=== PATIENT | male | born 1950 | race Caucasian/White ===

== ENCOUNTER 2017-07-28 17:08 | Inpatient (IN) | payer MEDICARE, OTHER ==
[~2017-07-28 17:08] MED LIST: Iopamidol 300 61% 100 ML VIAL FS ONE
[2017-07-28] MEDS ORDERED: Ondansetron HCl/PF 4 MG/2 ML Vial ONE (17:48)
[2017-07-28 18:11] LABS: ALT (SGPT) 46 U/L (8-55); Alkaline Phosphatase 65 U/L (40-150); Anion Gap 28 mmol/L (10-20); BUN (Urea Nitrogen) 17 mg/dL (8.4-25.7); Bilirubin, Total 0.4 mg/dL (0.2-1.2); Calc. Creatinine Clearance 0 mL/min (70-130); Calcium 9.3 mg/dL (7.8-10.44); Carbon Dioxide 12 mmol/L (23-31); Chloride 96 mmol/L (98-107); Estimated GFR-MDRD 63; Globulin 4.6 g/dL (2.4-3.5); Glucose 299 mg/dL (80-115); Potassium 4.2 mmol/L (3.5-5.1); Protein, Total 8.6 g/dL (5.8-8.1); Sodium 132 mmol/L (136-145)
[2017-07-28 18:12] LABS: CKMB 2.4 ng/mL (0-6.6); Troponin I 0.014 ng/mL (< 0.028)
[2017-07-28 18:18] LABS: AST (SGOT) 26 U/L (5-34)
[2017-07-28 18:33] LABS: Band 9 % (5-11); Eosinophils 2 % (0-10); Hemoglobin 13.7 g/dL (14.0-18.0); Lymphocytes 12 % (21-51); MDiff Complete? YES; Mean Corpuscular HGB CONC 38.7 g/dL (32.0-36.0); Mean Corpuscular Hemoglobin 32.9 pg (27.0-31.0); Mean Corpuscular Volume 85.1 fl (80.0-94.0); Mean Platelet Volume 7.7 fL (7.4-10.4); Monocytes 4 % (0-10); Neutrophil 72 % (42-75); PLT Morphology Comment Appears Adequate; Platelet Count 156 thou/uL (130-400); RBC Distribution Width 10.9 % (11.5-14.5); Red Blood Cell (RBC) Count 4.17 mill/uL (4.70-6.10)
--- NOTE | 2017-07-28 19:07 | CT ---
CTA CHEST CTA ABDOMEN AND PELVIS CTA AORTOGRAM WITH 3D VOLUME RENDERING 07/28/17 CLINICAL HISTORY: Abdominal pain, gradual onset, progressive. FINDINGS: There is no evidence of acute dissection involving the thoracoabdominal aorta. No aneurysmal dilatati on or periaortic hematoma. The pulmonary arteries are of normal caliber. Scattered granulomatous calcifications are present. The re is inflammation of the central abdomen statistically reflective of pancreatitis. Fluid density michel s approximate the gastric wall as well as loops of regional bowel. A possibility of superimposed rahul roenteritis not excluded. Correlate clinically. No free air. No portal venous gas. There is low atten uation of the liver which may be on the basis of hepatic steatosis and/or phase of enhancement. Scatt ered vascular calcification present. Major branch vessels of the abdominal aorta are patent. There is osseous degenerative change. IMPRESSION: 1. No acute aortic pathology evident. 2. Findings which most likely relate to pancreatitis. Possibility of superimposed gastroenteriti s not excluded. Recommend correlation with pancreatic enzyme values. POS: CHARIS
[2017-07-28 19:27] LABS: Lipase 11981 U/L (8-78)
[2017-07-28 20:17] LABS: Actual Bicarbonate (HCO3v) 26 mEq/L (22-26); Base Excess 0.2 mEq/L (0 (+/- 2.5)); Chloride (ABG LAB) 97 mmol/L (98-106); Potassium - ABG Lab 5.3 mmol/L (3.70-5.30); Sodium 135.6 mmol/L (133-146); pH (venous) 7.36 (7.35-7.45)
[2017-07-28] MEDS ORDERED: Dextrose 50% Abboject 50 ML SYRINGE SLOW IVP PRN (20:41)
[2017-07-28] MEDS ORDERED: Dextrose 5% in Water 1,000 ML IV PRN (20:41)
[2017-07-28] MEDS ORDERED: Ondansetron HCl/PF 4 MG/2 ML Vial IVP PRN ×2 (20:41→20:45)
[2017-07-28] MEDS ORDERED: Ondansetron ODT 4 MG TAB SL PRN (20:45)
[2017-07-28] MEDS ORDERED: Sodium Chloride 0.9% 1,000 ML IV SCH (20:45)
--- NOTE | 2017-07-28 21:10 | HP ---
CHIEF COMPLAINT: Abdominal pain. HISTORY OF PRESENT ILLNESS: The patient is a 66-year-old male who presents with left upper quadrant abdominal pain starting around 3:00 today. The patient states the pain was sharp and it occurred aft er he had eaten lunch. Patient states that he has never had any prior occurrence. Otherwise, he als o had nausea and vomiting along with this on the onset. The patient denied any fevers or chills, ankita rrhea, or constipation. He does have a history of hypertriglyceridemia which he is on medication for . PAST MEDICAL HISTORY: Significant for type 2 diabetes and hypertension as well as hypertriglyceridem ia. PAST SURGICAL HISTORY: The patient has had prior appendectomy. SOCIAL HISTORY: Patient drinks socially. No tobacco use. FAMILY HISTORY: Reviewed and noncontributory. REVIEW OF SYSTEMS: Please see HPI. Rest of the 14-point review of system is negative. MEDICATIONS: Currently, patient is on 625 mg of Welchol, 10 mg of lisinopril once a day, Prozac 10 m g once a day and metformin 1000 mg once a day. LABORATORY AND X-RAY FINDINGS: CBC, white count is 12, H&H 13 and 40 with platelet of 156. Sodium i s 132, potassium 4.2, chloride 96, bicarbonate 12, BUN 17, creatinine 1.1 with glucose of 299. AST i s 26, ALT 46. Lipase was 11,981. PHYSICAL EXAMINATION: VITAL SIGNS: Temperature 98, pulse 79, respirations 16. The patient is satting 94% on room air, blo od pressure 156/66. GENERAL: Patient is awake, alert, and oriented x3, no acute distress. HEENT: Pupils are equal, round, reactive to light and accommodation. Extraocular muscles are intact . TMs are clear. No erythema in throat. NECK: No JVD, no lymphadenopathy. CARDIOVASCULAR: Regular rate and rhythm. LUNGS: Clear to auscultation bilaterally. ABDOMEN: Positive bowel sounds, soft, tender to palpation in the left upper quadrant. No rebound, r igidity, no peritoneal signs. EXTREMITIES: No clubbing, cyanosis or edema. NEUROLOGIC: Cranial nerves II-XII are grossly intact. PSYCHIATRIC: The patient answers questions appropriately and is cooperative. ASSESSMENT AND PLAN: 1. Acute pancreatitis most likely secondary to hypertriglyceridemia. Continue with pain medication. Continue with IV fluids. Maintain the patient on n.p.o. 2. Type 2 diabetes. Continue insulin sliding scale only. Hold metformin. 3. Hypertension. Hold lisinopril. Continue to monitor and p.r.n. medications as needed. 4. Hypertriglyceridemia. Patient is on Welchol. We will address once the patient is able to have p .o. intake. CODE STATUS: Patient is a FULL CODE.
[2017-07-28 21:12] VITALS: BMI 28.7
[2017-07-28] MEDS: Famotidine/PF 20 mg/2ml Vial SLOW IVP SCH (21:30)
[2017-07-28] MEDS: Sodium Chloride 0.9% 1,000 ML IV SCH (22:41)
[2017-07-29] MEDS: HumaLOG 300 UNITS/3 ML VIAL SC PRN ×3 (00:07→20:08)
[2017-07-29 03:45] LABS: Bilirubin Negative (Negative); Blood, Urine Negative (Negative); Clarity CLEAR (Clear); Glucose, Urine (Dipstick) >=1000 mg/dL (Negative); Leukocyte Negative (Negative); Nitrite Negative (Negative); Protein, Urine (Dipstick) Negative (Neg-Trace); Specific Gravity, Urine 1.037 (1.002-1.036); Urobilinogen 0.2 mg/dL (0.2-1.0)
[2017-07-29 03:51] LABS: Bacteria/HPF None Seen HPF (None Seen); Hyaline Casts/LPF 0-3 HYALINE CAST LPF (0-3 Hyaline); RBC/HPF 0-3 HPF (0-3); Squamous Epithelial None Seen HPF (0-3); WBC/HPF None Seen HPF (0-3)
[2017-07-29 05:11] LABS: #Basophils 0.1 thou/uL (0.0-0.2); #Eosinphils 0.1 thou/uL (0.0-0.7); #Monocytes 0.7 thou/uL (0.11-0.59); #Neutrophils 8.2 thou/uL (1.40-6.50); %Basophils 0.6 % (0.0-1.0); %Eosinophils 0.7 % (0.0-10.0); %Lymphocytes 10.1 % (21.0-51.0); %Monocytes 6.5 % (0.0-10.0); %Neutrophils 82.2 % (42.0-75.0); Hemoglobin 14.4 g/dL (14.0-18.0); Mean Corpuscular HGB CONC 36.9 g/dL (32.0-36.0); Mean Corpuscular Hemoglobin 32.6 pg (27.0-31.0); Mean Corpuscular Volume 88.5 fl (80.0-94.0); Mean Platelet Volume 7.7 fL (7.4-10.4); Platelet Count 168 thou/uL (130-400); RBC Distribution Width 11.9 % (11.5-14.5); Red Blood Cell (RBC) Count 4.41 mill/uL (4.70-6.10)
[2017-07-29 05:27] LABS: ALT (SGPT) 35 U/L (8-55); AST (SGOT) 14 U/L (5-34); Albumin 3.5 g/dL (3.4-4.8); Alkaline Phosphatase 59 U/L (40-150); Anion Gap 22 mmol/L (10-20); BUN (Urea Nitrogen) 12 mg/dL (8.4-25.7); Bilirubin, Total 0.7 mg/dL (0.2-1.2); Calc. Creatinine Clearance 99 mL/min (70-130); Calcium 8.3 mg/dL (7.8-10.44); Carbon Dioxide 16 mmol/L (23-31); Chloride 98 mmol/L (98-107); Estimated GFR-MDRD 79; Globulin 3.1 g/dL (2.4-3.5); Glucose 288 mg/dL (80-115); Potassium 3.9 mmol/L (3.5-5.1); Protein, Total 6.6 g/dL (5.8-8.1); Sodium 132 mmol/L (136-145)
[2017-07-29] MEDS: Sodium Chloride 0.9% 1,000 ML IV SCH ×4 (05:30→20:11)
[2017-07-29 06:39] LABS: Lipase 1568 U/L (8-78)
[2017-07-29 07:34] LABS: Cardiac Risk 25.7 (Less than 4.5); Cholesterol 411 mg/dl (< 200 Desired); HDL Cholesterol 16 mg/dL (>60 Neg Risk)
[2017-07-29 07:50] LABS: Triglycerides 2275 mg/dL (Less than 150)
[2017-07-29] MEDS: Famotidine/PF 20 mg/2ml Vial SLOW IVP SCH ×2 (08:24→20:12)
[2017-07-29] MEDS: Enoxaparin Sodium 30 MG/0.3 ML SYRINGE SC SCH (08:26)
[2017-07-29] MEDS ORDERED: FLU VACC TS2017-18 (>65YR) 0.5 ML SYRINGE IM ONE (09:00)
--- NOTE | 2017-07-29 10:53 | PDOC.PN ---
- Subjective Encounter Start Date: 07/29/17 Encounter Start Time: 10:52 Mr. Carrizales was seen today in follow-up of pancreatitis. He says the abdominal pain is much improved since last night. He only has a few waves of pain across his abdomen at a rate of 5/10 from time to time. - Objective Resuscitation Status: Resuscitation Status FULL:Full Resuscitation MAR Reviewed: Yes Vital Signs & Weight: Vital Signs (12 hours) Temp Pulse Resp BP BP Pulse Ox 07/29/17 08:00 99 F 79 24 H 134/74 93 L 07/29/17 03:22 98.8 F 75 12 151/71 H 96 07/28/17 23:40 98.1 F 76 16 136/63 95 Weight Weight 200 lb 4.8 oz I&O: 07/28/17 07/29/17 07/30/17 06:59 06:59 06:59 Intake Total 1500 Balance 1500 Result Diagrams: 07/29/17 04:38 07/29/17 04:38 Additional Labs: Accuchecks 07/29/17 07/28/17 05:32 23:47 POC Glucose 266 H 244 H Phys Exam - Physical Examination HEENT: PERRLA Respiratory: no wheezing, no rales, no rhonchi, clear to auscultation bilateral Cardiovascular: RRR, no significant murmur, no rub Gastrointestinal: soft, positive bowel sounds + diffuse mild tenderness, no rebound orguarding Musculoskeletal: no edema Dx/Plan (1) Acute pancreatitis Code(s): K85.90 - ACUTE PANCREATITIS WITHOUT NECROSIS OR INFECTION, UNSP Status: Acute (2) Hypertriglyceridemia Code(s): E78.1 - PURE HYPERGLYCERIDEMIA Status: Acute (3) Diabetes mellitus type 2 in obese Code(s): E11.69 - TYPE 2 DIABETES MELLITUS WITH OTHER SPECIFIED COMPLICATION; E66.9 - OBESITY, UNSPECIFIED Status: Acute (4) Hypertension Code(s): I10 - ESSENTIAL (PRIMARY) HYPERTENSION Status: Acute - Plan * Acute pancreatitis due to hypertriglyceridemia- He admits that he does not take his medications regularly. The dangers of this were discussed * Will advance his diet to clear liquids * Continue IV fluids and IV analgesics * HTN - blood pressure is stable * DM- Continue SSI.
[2017-07-29] MEDS ORDERED: hydrALAZINE 20 MG/ML VIAL SLOW IVP PRN (10:57)
[2017-07-29] MEDS: Fenofibrate Nanocrystallized 145 MG TAB PO SCH (20:12)
[2017-07-29] MEDS: Acetaminophen 325 MG TAB PO PRN (20:12)
[2017-07-30] MEDS: Acetaminophen 325 MG TAB PO PRN ×3 (02:18→20:45)
[2017-07-30] MEDS: HumaLOG 300 UNITS/3 ML VIAL SC PRN ×3 (02:18→23:50)
[2017-07-30 05:35] LABS: Anion Gap 15 mmol/L (10-20); BUN (Urea Nitrogen) 7 mg/dL (8.4-25.7); Calc. Creatinine Clearance 105 mL/min (70-130); Carbon Dioxide 22 mmol/L (23-31); Chloride 100 mmol/L (98-107); Estimated GFR-MDRD 85; Glucose 200 mg/dL (80-115); Lipase 140 U/L (8-78); Potassium 3.6 mmol/L (3.5-5.1); Sodium 133 mmol/L (136-145)
[2017-07-30] MEDS: Sodium Chloride 0.9% 1,000 ML IV SCH ×3 (06:35→20:45)
[2017-07-30] MEDS: FLUoxetine HCl 20 MG CAP PO SCH (08:59)
[2017-07-30] MEDS: Gabapentin 300 MG CAP PO SCH (08:59)
[2017-07-30] MEDS: Enoxaparin Sodium 30 MG/0.3 ML SYRINGE SC SCH (09:04)
[2017-07-30] MEDS: Famotidine/PF 20 mg/2ml Vial SLOW IVP SCH ×2 (09:04→20:45)
--- NOTE | 2017-07-30 10:28 | PDOC.PN ---
- Subjective Encounter Start Date: 07/30/17 Encounter Start Time: 10:26 - Objective Resuscitation Status: Resuscitation Status FULL:Full Resuscitation MAR Reviewed: Yes Vital Signs & Weight: Vital Signs (12 hours) Temp Pulse Resp BP BP Pulse Ox 07/30/17 08:00 99.2 F 98 14 175/95 H 90 L 07/30/17 06:04 100.0 F H 86 18 144/79 H 93 L Weight Weight 200 lb 4.8 oz I&O: 07/29/17 07/30/17 07/31/17 06:59 06:59 06:59 Intake Total 1500 Balance 1500 Result Diagrams: 07/29/17 04:38 07/30/17 04:04 Additional Labs: Accuchecks 07/30/17 07/30/17 07/29/17 06:49 02:01 20:02 POC Glucose 217 H 218 H 265 H 07/29/17 15:45 POC Glucose 233 H Phys Exam - Physical Examination HEENT: PERRLA Respiratory: no wheezing, no rales, no rhonchi, clear to auscultation bilateral Cardiovascular: RRR, no significant murmur Gastrointestinal: soft, positive bowel sounds + mild upper left upper quandrant tenderness Musculoskeletal: no edema Dx/Plan (1) Acute pancreatitis Code(s): K85.90 - ACUTE PANCREATITIS WITHOUT NECROSIS OR INFECTION, UNSP Status: Acute (2) Hypertriglyceridemia Code(s): E78.1 - PURE HYPERGLYCERIDEMIA Status: Acute (3) Diabetes mellitus type 2 in obese Code(s): E11.69 - TYPE 2 DIABETES MELLITUS WITH OTHER SPECIFIED COMPLICATION; E66.9 - OBESITY, UNSPECIFIED Status: Acute (4) Hypertension Code(s): I10 - ESSENTIAL (PRIMARY) HYPERTENSION Status: Acute - Plan * Acute Pancreatitis- improving slowly- will check a gall bladder ultrasound to rule out stone * Hypertriglyceridemia- continue Welcol, and Fenofibrate * HTN- will add scheduled Hydralazine * DM- triglyceride level is interfering with bedside glucose- will check serum glucose twice a day * Continue clear liquids today.
--- NOTE | 2017-07-30 15:02 | ULT ---
ABDOMINAL ULTRASOUND: Date: 07/30/17 HISTORY: Abdominal pain. FINDINGS: Real-time imaging of the upper abdomen shows a normal appearing gallbladder. The common duct is 3.0 m m. Technologist reports a negative ultrasound Kelly's sign. The liver shows increased echogenicity compatible with fatty change. The spleen measures 11.5 cm in l ength. Pancreas is obscured. Right and left kidneys are normal in size and not obstructed. Abdominal aorta and IVC regions are also partially obscured by bowel gas. IMPRESSION: Fatty changes of the liver. POS: C
[2017-07-30] MEDS: hydrALAZINE 10 MG TAB PO SCH ×2 (15:04→20:44)
[2017-07-30] MEDS: WELCHOL 625 MG PO SCH ×2 (15:04→20:44)
[2017-07-30] MEDS: Fenofibrate Nanocrystallized 145 MG TAB PO SCH (20:44)
[2017-07-30 21:17] LABS: Glucose 190 mg/dL (80-115)
[2017-07-31] MEDS: Sodium Chloride 0.9% 1,000 ML IV SCH ×2 (05:33→09:56)
[2017-07-31 09:17] LABS: Glucose 247 mg/dL (80-115)
[2017-07-31] MEDS: Enoxaparin Sodium 30 MG/0.3 ML SYRINGE SC SCH (09:39)
[2017-07-31] MEDS: Famotidine/PF 20 mg/2ml Vial SLOW IVP SCH ×2 (09:40→20:23)
[2017-07-31] MEDS: FLUoxetine HCl 20 MG CAP PO SCH (09:40)
[2017-07-31] MEDS: Gabapentin 300 MG CAP PO SCH (09:40)
[2017-07-31] MEDS: hydrALAZINE 10 MG TAB PO SCH ×3 (09:41→20:24)
[2017-07-31] MEDS: HumaLOG 300 UNITS/3 ML VIAL SC PRN ×2 (09:46→22:07)
[2017-07-31] MEDS: WELCHOL 625 MG PO SCH ×2 (11:20→22:05)
[2017-07-31] MEDS ORDERED: cloNIDine 0.1 MG TAB PO PRN (11:45)
--- NOTE | 2017-07-31 11:45 | PDOC.PN ---
- Subjective Encounter Start Date: 07/31/17 Encounter Start Time: 11:42 Mr. Carrizales does not have any complaints this afternoon. He says his abdomen feels a bit full, but otherwise ok. - Objective Resuscitation Status: Resuscitation Status FULL:Full Resuscitation MAR Reviewed: Yes Vital Signs & Weight: Vital Signs (12 hours) Temp Pulse Resp BP BP Pulse Ox 07/31/17 09:41 87 170/83 H 07/31/17 07:15 98.7 F 87 18 170/83 H 95 07/31/17 05:06 99.8 F H 91 18 173/90 H 94 L 07/31/17 00:17 98.7 F 86 18 161/77 H 94 L Weight Weight 200 lb 4.8 oz I&O: 07/30/17 07/31/17 08/01/17 06:59 06:59 06:59 Intake Total 5600 Balance 5600 Result Diagrams: 07/29/17 04:38 07/31/17 08:50 Additional Labs: Accuchecks 07/31/17 10:55 POC Glucose 182 H Phys Exam - Physical Examination HEENT: PERRLA Respiratory: no wheezing, no rales, no rhonchi, clear to auscultation bilateral Cardiovascular: RRR, no significant murmur, no rub Gastrointestinal: soft, non-tender, positive bowel sounds Musculoskeletal: no edema Dx/Plan (1) Acute pancreatitis Code(s): K85.90 - ACUTE PANCREATITIS WITHOUT NECROSIS OR INFECTION, UNSP Status: Acute (2) Hypertriglyceridemia Code(s): E78.1 - PURE HYPERGLYCERIDEMIA Status: Acute (3) Diabetes mellitus type 2 in obese Code(s): E11.69 - TYPE 2 DIABETES MELLITUS WITH OTHER SPECIFIED COMPLICATION; E66.9 - OBESITY, UNSPECIFIED Status: Acute (4) Hypertension Code(s): I10 - ESSENTIAL (PRIMARY) HYPERTENSION Status: Acute - Plan * Acute Pancreatitis- from hypertriglyderidemia- continue Fenofibrate and Welcol * Will advance his diet to full liquids * HTN- blood pressure is slightly elevated still will add Clonidine * Hopefully home if tolerated a full liquid diet.
[2017-07-31] MEDS ORDERED: cloNIDine 0.1 MG TAB PO SCH (12:00)
[2017-07-31] MEDS: Fenofibrate Nanocrystallized 145 MG TAB PO SCH (20:23)
[2017-07-31] MEDS: Acetaminophen 325 MG TAB PO PRN (20:24)
[2017-07-31 21:31] LABS: Glucose 244 mg/dL (80-115)
[2017-08-01] MEDS: HumaLOG 300 UNITS/3 ML VIAL SC PRN (04:31)
[2017-08-01] MEDS ORDERED: Loperamide HCl 2 MG CAP PO PRN (08:35)
[2017-08-01] MEDS ORDERED: Eucerin (Mineral Oil/Petrolatum,White) 30 gm Jar TOP PRN (08:35)
[2017-08-01] MEDS ORDERED: Artificial Tears 18 DROP/0.9 ML EA EYE PRN (08:35)
[2017-08-01] MEDS ORDERED: Mag-Al 1200 mg/1200 mg/30 ML UDCUP PO PRN (08:35)
[2017-08-01] MEDS ORDERED: Temazepam 15 MG CAP PO PRN (08:35)
[2017-08-01] MEDS: Gabapentin 300 MG CAP PO SCH (08:35)
[2017-08-01] MEDS ORDERED: Loratadine 10 MG TAB PO PRN (08:35)
[2017-08-01] MEDS: FLUoxetine HCl 20 MG CAP PO SCH (08:35)
[2017-08-01] MEDS ORDERED: Sodium Chloride 0.65% Nasal 44 ML BOT EA NARE PRN (08:35)
[2017-08-01] MEDS: Enoxaparin Sodium 30 MG/0.3 ML SYRINGE SC SCH (08:35)
[2017-08-01] MEDS ORDERED: HYDROcodone/Acetaminophen 5/325 mg Tablet PO PRN (08:35)
[2017-08-01] MEDS ORDERED: Senokot 8.6 MG TAB PO PRN (08:35)
[2017-08-01] MEDS ORDERED: Ondansetron ODT 4 MG TAB PO PRN (08:35)
[2017-08-01] MEDS ORDERED: Milk Of Magnesia 30 ML UDCUP PO PRN (08:35)
[2017-08-01] MEDS ORDERED: HumaLOG 300 UNITS/3 ML VIAL SC PRN ×2 (08:35)
[2017-08-01] MEDS ORDERED: Diabetic Tussin 200 MG/10 ML UDCUP PO PRN (08:35)
[2017-08-01] MEDS ORDERED: Chloraseptic Spray 180 ml Bottle PO PRN (08:35)
[2017-08-01] MEDS: hydrALAZINE 10 MG TAB PO SCH (08:36)
[2017-08-01] MEDS ORDERED: metFORMIN 500 MG TAB PO SCH (09:00)
[2017-08-01] MEDS ORDERED: Lisinopril/Hydrochlorothiazide 20/25 mg Tablet PO SCH (09:00)
[2017-08-01] MEDS ORDERED: Famotidine 20 MG TAB PO SCH (09:00)
[2017-08-01 10:57] LABS: #Eosinphils 0.3 thou/uL (0.0-0.7); #Lymphocytes 1.2 thou/uL (1.20-3.40); #Monocytes 0.7 thou/uL (0.11-0.59); #Neutrophils 8.2 thou/uL (1.40-6.50); %Basophils 0.4 % (0.0-1.0); %Eosinophils 2.7 % (0.0-10.0); %Lymphocytes 11.2 % (21.0-51.0); %Monocytes 6.9 % (0.0-10.0); %Neutrophils 78.8 % (42.0-75.0); Hemoglobin 12.7 g/dL (14.0-18.0); Mean Corpuscular HGB CONC 34.2 g/dL (32.0-36.0); Mean Corpuscular Hemoglobin 31.8 pg (27.0-31.0); Mean Corpuscular Volume 92.9 fl (80.0-94.0); Mean Platelet Volume 7.1 fL (7.4-10.4); Platelet Count 185 thou/uL (130-400); RBC Distribution Width 11.8 % (11.5-14.5); Red Blood Cell (RBC) Count 3.99 mill/uL (4.70-6.10); White Blood Cell (WBC) Count 10.4 thou/uL (4.8-10.8)
--- NOTE | 2017-08-01 11:13 | PDOC.PN ---
- Subjective Encounter Start Date: 08/01/17 Encounter Start Time: 08:30 -: old records requested/rev Patient seen and examined. No new complaints. No overnight events - Objective Resuscitation Status: Resuscitation Status FULL:Full Resuscitation MAR Reviewed: Yes Vital Signs & Weight: Vital Signs (12 hours) Temp Pulse Resp BP BP Pulse Ox 08/01/17 09:54 72 168/83 H 08/01/17 08:36 72 168/83 H 08/01/17 08:00 98.1 F 72 16 168/83 H 96 08/01/17 07:15 98.1 F 72 16 Weight Weight 200 lb 4.8 oz I&O: 07/31/17 08/01/17 08/02/17 06:59 06:59 06:59 Intake Total 5600 3350 Balance 5600 3350 Result Diagrams: 08/01/17 10:46 07/31/17 21:07 Additional Labs: Accuchecks 08/01/17 04:18 POC Glucose 242 H Phys Exam - Physical Examination Constitutional: NAD HEENT: PERRLA, moist MMs, sclera anicteric Neck: no JVD, supple Respiratory: no wheezing, no rales, no rhonchi Cardiovascular: RRR, no significant murmur, no rub Gastrointestinal: soft, non-tender, no distention, positive bowel sounds Musculoskeletal: no edema, pulses present Neurological: non-focal, normal sensation, moves all 4 limbs Psychiatric: normal affect, A&O x 3 Skin: normal turgor, cap refill <2 seconds Deviation from normal: rash noted Dx/Plan (1) Acute pancreatitis Code(s): K85.90 - ACUTE PANCREATITIS WITHOUT NECROSIS OR INFECTION, UNSP Status: Acute (2) Diabetes mellitus type 2 in obese Code(s): E11.69 - TYPE 2 DIABETES MELLITUS WITH OTHER SPECIFIED COMPLICATION; E66.9 - OBESITY, UNSPECIFIED Status: Acute (3) Hypertension Code(s): I10 - ESSENTIAL (PRIMARY) HYPERTENSION Status: Acute (4) Hypertriglyceridemia Code(s): E78.1 - PURE HYPERGLYCERIDEMIA Status: Acute (5) Rash Code(s): R21 - RASH AND OTHER NONSPECIFIC SKIN ERUPTION Status: Acute - Plan cont current plan of care, plan discussed w/ family * will check lasb today, * advance diet to low fat diet * outpt dermatology follow up advised for rash * medication reviewed as below * symptomatic treatment * will discharge later today. Review of Systems - Review of Systems Constitutional: negative: fever, chills, sweats, weakness, malaise, other ENT: negative: Ear Pain, Ear Discharge, Nose Pain, Nose Discharge, Nose Congestion, Mouth Pain, Mouth Swelling, Throat Pain, Throat Swelling, Other Respiratory: negative: Cough, Dry, Shortness of Breath, Hemoptysis, SOB with Excertion, Pleuritic Pain, Sputum, Wheezing Cardiovascular: negative: chest pain, palpitations, orthopnea, paroxysmal nocturnal dyspnea, edema, light headedness, other Gastrointestinal: negative: Nausea, Vomiting, Abdominal Pain, Diarrhea, Constipation, Melena, Hematochezia, Other Genitourinary: negative: Dysuria, Frequency, Incontinence, Hematuria, Retention , Other Musculoskeletal: negative: Neck Pain, Shoulder Pain, Arm Pain, Back Pain, Hand Pain, Leg Pain, Foot Pain, Other Skin: Rash. negative: Lesions, Patricio, Bruising, Other - Medications/Allergies Allergies/Adverse Reactions: Allergies Allergy/AdvReac Type Severity Reaction Status Date / Time No Known Drug Allergies Allergy Verified 07/28/17 21:13 Medications: Current Medications Acetaminophen (Tylenol) 650 mg PO Q6H PRN PRN Reason: Headache/Fever or Pain Last Admin: 07/31/17 20:24 Dose: 650 mg Hydrocodone Bitart/Acetaminophen ([place] 5/325) 1 tab PO Q4H PRN PRN Reason: Moderate Pain (4-6) Al Hydroxide/Mg Hydroxide (Maalox) 15 ml PO Q4H PRN PRN Reason: Heartburn or Indigestion Artificial Tears (Tears Naturale) 0 drop EA EYE PRN PRN PRN Reason: Dry Eyes Clonidine (Catapres) 0.1 mg PO Q4H PRN PRN Reason: Blood Pressure Last Admin: 07/31/17 20:24 Dose: 0.1 mg Dextrose/Water (Dextrose 50%) 25 gm SLOW IVP PRN PRN PRN Reason: Hypoglycemia Enoxaparin Sodium (Lovenox) 30 mg SC 0900 [facility] Last Admin: 08/01/17 08:35 Dose: 30 mg Famotidine (Pepcid) 20 mg PO BID [facility] Last Admin: 08/01/17 09:05 Dose: 20 mg Fenofibrate (Tricor) 145 mg PO HS [facility] Last Admin: 07/31/17 20:23 Dose: 145 mg Fluoxetine HCl (Prozac) 40 mg PO DAILY [facility] Last Admin: 08/01/17 08:35 Dose: 40 mg Gabapentin (Neurontin) 600 mg PO DAILY [facility] Last Admin: 08/01/17 08:35 Dose: 600 mg Glucagon (Glucagon) 1 mg IM PRN PRN PRN Reason: Hypoglycemia Guaifenesin (Robitussin Sf) 200 mg PO Q4H PRN PRN Reason: Cough Lisinopril/HCTZ (Prinizide 20-25) 1 tab PO DAILY [facility] Last Admin: 08/01/17 09:54 Dose: 1 tab Hydralazine HCl (Apresoline) 10 mg SLOW IVP Q4H PRN PRN Reason: Systolic BP > 180 Last Admin: 07/30/17 11:32 Dose: 10 mg Hydralazine HCl (Apresoline) 10 mg PO TID [facility] Last Admin: 08/01/17 08:36 Dose: 10 mg Dextrose/Water (D5w) 1,000 mls @ 0 mls/hr IV .Q0M PRN; As Directed PRN Reason: Hypoglycemia Insulin Human Lispro (Humalog) 0 units SC .MODERATE SLIDING SC PRN PRN Reason: Moderate Correctional Scale Insulin Human Lispro (Humalog) 0 units SC .BEDTIME SLIDING SC PRN PRN Reason: Bedtime Correctional Scale Loperamide HCl (Imodium) 2 mg PO PRN PRN PRN Reason: Diarrhea/Loose Stools Loratadine (Claritin) 10 mg PO DAILYPRN PRN PRN Reason: Sinus Symptoms Magnesium Hydroxide (Milk Of Magnesium) 30 ml PO DAILYPRN PRN PRN Reason: Constipation Metformin HCl (Glucophage) 500 mg PO TID [facility] Last Admin: 08/01/17 09:54 Dose: 500 mg Mineral Oil/White Petrolatum (Eucerin Cream) 0 gm TOP BIDPRN PRN PRN Reason: Dry Skin Morphine Sulfate (Morphine) 2 mg SLOW IVP Q2H PRN PRN Reason: Pain 7-10 Ondansetron HCl (Zofran) 4 mg IVP Q6H PRN PRN Reason: Nausea/Vomiting Ondansetron HCl (Zofran Odt) 4 mg PO Q6H PRN PRN Reason: Nausea/Vomiting Welchol 625 Mg Tab 3 each PO 1200,2200 [facility] Last Admin: 07/31/17 22:05 Dose: 3 each Phenol (Chloraseptic [place] 180 Ml Bot) 0 ml PO PRN PRN PRN Reason: Sore Throat Senna (Senokot) 2 tab PO HSPRN PRN PRN Reason: Constipation Sodium Chloride (Flush - Normal Saline) 10 ml IVF Q12HR [facility] Last Admin: 08/01/17 08:37 Dose: 10 ml Sodium Chloride (Flush - Normal Saline) 10 ml IVF PRN PRN PRN Reason: Saline Flush Sodium Chloride ([place] Nasal [place] 0.65%) 0 ml EA NARE QIDPRN PRN PRN Reason: Nasal Congestion Temazepam (Restoril) 15 mg PO HSPRN PRN PRN Reason: Insomnia
[2017-08-01 11:17] LABS: ALT (SGPT) 13 U/L (8-55); AST (SGOT) 9 U/L (5-34); Albumin 3.2 g/dL (3.4-4.8); Alkaline Phosphatase 55 U/L (40-150); Anion Gap 9 mmol/L (10-20); BUN (Urea Nitrogen) 10 mg/dL (8.4-25.7); Bilirubin, Total 0.6 mg/dL (0.2-1.2); CRP (Inflammatory) 11.76 mg/dL (= or < 0.5); Calc. Creatinine Clearance 99 mL/min (70-130); Carbon Dioxide 28 mmol/L (23-31); Chloride 101 mmol/L (98-107); Estimated GFR-MDRD 79; Globulin 2.9 g/dL (2.4-3.5); Glucose 236 mg/dL (80-115); Magnesium 1.9 mg/dL (1.6-2.6); Potassium 3.6 mmol/L (3.5-5.1); Protein, Total 6.1 g/dL (5.8-8.1); Sodium 134 mmol/L (136-145); Triglycerides 405 mg/dL (Less than 150)
[2017-08-01] MEDS: WELCHOL 625 MG PO SCH (11:51)
[2017-08-01 11:52] VITALS: BP 160/84; TEMP 98.6
--- NOTE | 2017-08-01 14:07 | DIS ---
DATE OF ADMISSION: 07/28/2017 DATE OF DISCHARGE: 08/01/2017 PRIMARY CARE PHYSICIAN: [facility] Call Admission. DISCHARGE DISPOSITION: Home. PRIMARY DISCHARGE DIAGNOSES: Acute pancreatitis due to hypertriglyceridemia, dermatitis. SECONDARY DISCHARGE DIAGNOSES: Diabetes type 2, hypertension, dyslipidemia. PRIMARY PROCEDURE/OPERATION: None. RADIOLOGICAL INVESTIGATION: CT dissection showed acute pancreatitis. Abdominal ultrasound showed no rmal gallbladder. SIGNIFICANT LABORATORY DATA: WBC 10.4, hemoglobin 12.7, platelets 185. Sodium 134, potassium 3.6, B UN 10, creatinine 0.96, calcium 9.0, magnesium 1.9, AST 9, ALT 13, alkaline phosphatase 55, albumin 3 .2, triglyceride 405. Urinalysis normal. DISCHARGE MEDICATIONS: Welchol 625 mg 3 tablets p.o. b.i.d., Tricor 145 mg p.o. at bedtime, Prozac 4 0 mg p.o. daily, gabapentin 600 mg p.o. daily, Prinzide 20/25 one tablet p.o. daily, and metformin 50 0 mg p.o. t.i.d. CONTRAINDICATIONS: None. CODE STATUS: FULL CODE. INPATIENT CONSULTANTS: None. ALLERGIES: No known drug allergy. DISCHARGE PLAN: Post hospital, the patient is instructed to follow up with primary care physician in 1 week. HOSPITAL COURSE: A 66-year-old male with above-mentioned medical problem, who was admitted by Dr. Marcelle Nelson. Please see his H&P for further detail. He presented to the emergency room with abdominal pain in epigastric and left upper quadrant region. He was not taking his cholesterol medications an d this time his triglyceride was found on admission 2275. He had acute pancreatitis. Clinically, wh ich was treated in standard fashion with n.p.o., IV fluid, pain control with narcotics and subsequent ly when pain was improving and lipase was getting better. At that time, we introduced clear liquid a nd full liquid and solid food. He was not having any further pain. He remained afebrile while in spital. He remained hemodynamically stable. We have given counseling to him to continue taking medi cation for triglyceride to prevent further problems in future. His repeat triglyceride level is norm al. His electrolytes normal. Patient is expressing himself to go home today and he is tolerating hi s diet. The patient is seen and examined at bedside today. Plan of care discussed with the patient and his w bart. On the day of discharge, the patient was having nonpruritic blanchable marginated raised erythe matous rash, but he had this type of rash in the past as well and I advised him to follow up with elana matologist for further evaluation. The patient and agreed to go home today. The patient is seen and examined at bedside today. Please see my progress note from today for furthe r details.
== END 2017-08-01 13:49 | disposition home or self-care (01) | DRG 440 ==
LOC: SCSER 17:08 → ONC 19:30 → SURG A 07-29 22:09
PROVIDERS: ADMIT Hospitalist; ATTEND Hospitalist
DX: K85.90 Acute pancreatitis without necrosis or infection, unspecified (principal); E11.9 Type 2 diabetes mellitus without complications; E78.1 Pure hyperglyceridemia; I10 Essential (primary) hypertension; Z79.84 Long term (current) use of oral hypoglycemic drugs; L30.9 Dermatitis, unspecified
CPT/HCPCS: 36415; 36416; 71275; 76700; 80048; 80053; 80061; 81001; 82010; 82553; 82805; 82947; 83690; 83735; 84478; 84484; 85025; 86140; 90471; 90682; 96361; 96374; 96375; A4216; G0008; J0360; J1650; J2405; Q2036; S0028

== ENCOUNTER 2023-07-17 14:06 | Outpatient (CLI) | payer MEDICARE, OTHER | END 2023-07-17 14:07 | disposition home or self-care (01) | LOC: CT 14:06 | PROVIDERS: ATTEND Surgery | DX: M47.26 Other spondylosis with radiculopathy, lumbar region (principal); M43.16 Spondylolisthesis, lumbar region; M48.07 Spinal stenosis, lumbosacral region; M48.061 Spinal stenosis, lumbar region without neurogenic claudication | CPT/HCPCS: 72131 ==